=== PATIENT | male | born 1955 | race Caucasian/White ===

== ENCOUNTER 2016-11-16 21:06 | Emergency (ER) | payer OTHER ==
[~2016-11-16] VITALS: Ht 182.9 cm; Wt 90.0 kg
--- NOTE | 2016-11-16 21:22 | PD ---
HPI Chief Complaint: Psychiatric Symptoms Time Seen by Provider: 21:09 Travel History International Travel<30 days: No Contact w/Intl Traveler<30days: No Traveled to known affect area: No History of Present Illness HPI 61-year-old male was Tomlinson acted and brought in for psychiatric evaluation. Patient is homeless and has been living in [place] at a hotel. Local law enforcement has been trying to help him with housing and patient started threatening suicidal today. Patient denies any headache. Patient denies any chest pain or shortness of breath. Patient denies abdominal pain. Patient denies any nausea vomiting diarrhea. Patient has history hypertension, diabetes , status post CVA with weakness that dependent on wheelchair and walker for ambulation. [facility] Social History Tobacco Use: No Allergies-Medications (Allergen,Severity, Reaction): Coded Allergies: No Known Allergies (Unverified , 11/16/16) Reported Meds & Prescriptions Reported Meds & Active Scripts Active Reported Combivent Respimat Inh (Ipratropium-Albuterol Inh) 20-100 Chcf/Act Aero 1 Puff INH QID Losartan (Losartan Potassium) 50 Mg Tab 50 Mg PO DAILY Pravachol (Pravastatin) 40 Mg Tab 40 Mg PO DAILY Metoprolol Tartrate 50 Mg Tab 50 Mg PO DAILY Metformin (Metformin HCl) 500 Mg Tab 500 Mg PO BIDPC With meals Hydrochlorothiazide 25 Mg Tab 25 Mg PO DAILY Glipizide 10 Mg Tab 10 Mg PO DAILY Take 30 minutes before a meal Benzonatate 100 Mg Cap 100 Mg PO TID PRN Atorvastatin (Atorvastatin Calcium) 80 Mg Tab 80 Mg PO HS Non-Aspirin (Acetaminophen) 325 Mg Tab 325 Mg PO Q4-6H Aspirin 81 Mg Chew 81 Mg CHEW DAILY Review of Systems General / Constitutional: No: Fever Eyes: No: Visual changes HENT: No: Headaches Cardiovascular: No: Chest Pain or Discomfort Respiratory: No: Shortness of Breath Gastrointestinal: No: Abdominal Pain Genitourinary: No: Dysuria Musculoskeletal: No: Pain Skin: No Rash Neurologic: No: Weakness Psychiatric: No: Depression Endocrine: No: Polydipsia Hematologic/Lymphatic: No: Easy Bruising Physical Exam Narrative GENERAL: Well-nourished, well-developed patient. SKIN: Focused skin assessment warm/dry. HEAD: Normocephalic. EYES: No scleral icterus. No injection or drainage. NECK: Supple, trachea midline. No JVD or lymphadenopathy. CARDIOVASCULAR: Regular rate and rhythm without murmurs, gallops, or rubs. RESPIRATORY: Breath sounds equal bilaterally. No accessory muscle use. GASTROINTESTINAL: Abdomen soft, non-tender, nondistended. MUSCULOSKELETAL: No cyanosis, or edema. BACK: Nontender without obvious deformity. No CVA tenderness. Data Data Last Documented VS Vital Signs Date Time Temp Pulse Resp B/P Pulse Ox O2 Delivery O2 Flow Rate FiO2 11/16/16 22:01 98.7 95 16 124/68 100 Room Air Orders Complete Blood Count With Diff (11/16/16 21:16) Comprehensive Metabolic Panel (11/16/16 21:16) Urinalysis - C+S If Indicated (11/16/16 21:16) Psych Screen (11/16/16 21:16) Drug Screen, Random Urine (11/16/16 21:16) Alcohol (Ethanol) (11/16/16 21:16) Labs Laboratory Tests Test 11/16/16 21:50 White Blood Count 11.4 TH/MM3 Red Blood Count 5.44 MIL/MM3 Hemoglobin 14.8 GM/DL Hematocrit 46.0 % Mean Corpuscular Volume 84.6 FL Mean Corpuscular Hemoglobin 27.2 PG Mean Corpuscular Hemoglobin 32.2 % Concent Red Cell Distribution Width 13.2 % Platelet Count 155 TH/MM3 Mean Platelet Volume 10.6 FL Neutrophils (%) (Auto) 65.5 % Lymphocytes (%) (Auto) 23.8 % Monocytes (%) (Auto) 7.9 % Eosinophils (%) (Auto) 2.1 % Basophils (%) (Auto) 0.7 % Neutrophils # (Auto) 7.4 TH/MM3 Lymphocytes # (Auto) 2.7 TH/MM3 Monocytes # (Auto) 0.9 TH/MM3 Eosinophils # (Auto) 0.2 TH/MM3 Basophils # (Auto) 0.1 TH/MM3 CBC Comment DIFF FINAL Differential Comment Urine Color YELLOW Urine Turbidity CLEAR Urine pH 5.5 Urine Specific [place] 1.030 Urine Protein TRACE mg/dL Urine Glucose (UA) 1000 mg/dL Urine Ketones NEG mg/dL Urine Occult Blood NEG Urine Nitrite NEG Urine Bilirubin NEG Urine Urobilinogen LESS THAN 2.0 MG/DL Urine Leukocyte Esterase NEG Urine RBC LESS THAN 1 /hpf Urine WBC 1 /hpf Urine Squamous Epithelial <1 /hpf Cells Urine Mucus FEW /lpf Microscopic Urinalysis Comment CULT NOT INDICATED Sodium Level 139 MEQ/L Potassium Level 3.5 MEQ/L Chloride Level 101 MEQ/L Carbon Dioxide Level 30.6 MEQ/L Anion Gap 7 MEQ/L Blood Urea Nitrogen 14 MG/DL Creatinine 0.89 MG/DL Estimat Glomerular Filtration 87 ML/MIN Rate Random Glucose 188 MG/DL Calcium Level 8.7 MG/DL Total Bilirubin 0.7 MG/DL Aspartate Amino Transf 7 U/L (AST/SGOT) Alanine Aminotransferase 13 U/L (ALT/SGPT) Alkaline Phosphatase 58 U/L Total Protein 6.9 GM/DL Albumin 3.6 GM/DL Urine Opiates Screen NEG Urine Barbiturates Screen NEG Urine Amphetamines Screen NEG Urine Benzodiazepines Screen NEG Urine Cocaine Screen NEG Urine Cannabinoids Screen NEG Ethyl Alcohol Level 4 MG/DL [facility] Medical Decision Making Medical Screen Exam Complete: Yes Emergency Medical Condition: Yes Interpretation(s) 23:48 PM. CBC within normal limit. CMP within normal limit. Urine drug screen negative. Alcohol 4. UA is negative. Differential Diagnosis Differential diagnosis including adjustment disorder, depression, suicide, electrolyte imbalance. Narrative Course 61-year-old male was Tomlinson acted for suicidal threat. 23:49 PM. Patient is medically cleared for psychiatric evaluation and disposition. Hossein Cox MD Nov 16, 2016 21:21 medically cleared for psychiatric evaluation and disposition. Hossien Cox MD Nov 16, 2016 21:21
[2016-11-16] MEDS ORDERED: BENZ1CAP8 PO (21:58)
[2016-11-16] MEDS ORDERED: METF500T PO (21:58)
[2016-11-16] MEDS ORDERED: NON-325T2 PO (21:58)
[2016-11-16] MEDS ORDERED: PRAV40TA PO (21:58)
[2016-11-16] MEDS ORDERED: ASPI81CH CHEW (21:58)
[2016-11-16] MEDS ORDERED: HYDR25TA5 PO (21:58)
[2016-11-16] MEDS ORDERED: METO50TA PO (21:58)
[2016-11-16] MEDS ORDERED: ATOR1TAB18 PO (21:58)
[2016-11-16] MEDS ORDERED: IPRAAER INH (21:58)
[2016-11-16] MEDS ORDERED: GLIP10TA6 PO (21:58)
[2016-11-16] MEDS ORDERED: LOSA50TA PO (21:58)
[2016-11-16 22:01] VITALS: BP 124/68; PULSE 95; RESP 16; TEMP 98.7; O2SAT 100
[2016-11-16 22:13] LABS: AUTOMATED NEUTROPHIL # 7.4 TH/MM3 (1.8-7.7); BASOPHIL # 0.1 TH/MM3 (0-0.2); BASOPHIL % 0.7 % (0.0-2.0); EOSINOPHIL # 0.2 TH/MM3 (0-0.4); EOSINOPHIL % 2.1 % (0.0-4.0); HEMO FLAGS DIFF FINAL; LYMPH % 23.8 % (9.0-44.0); LYMPHOCYTE # 2.7 TH/MM3 (1.0-4.8); MEAN CELL VOLUME 84.6 FL (80.0-100.0); MEAN CORPUSCULAR HEMOGLOBIN 27.2 PG (27.0-34.0); MEAN CORPUSCULAR HGB CONC 32.2 % (32.0-36.0); MONO % 7.9 % (0.0-8.0); NEUT % 65.5 % (16.0-70.0); PLATELET COUNT 155 TH/MM3 (150-450); RED BLOOD COUNT 5.44 MIL/MM3 (4.50-5.90); RED CELL DISTRIBUTION WIDTH 13.2 % (11.6-17.2); WHITE BLOOD COUNT 11.4 TH/MM3 (4.0-11.0)
[2016-11-16 22:15] LABS: BLOOD, URINE NEG (NEG); COMMENT (UR) CULT NOT INDICATED; CULTURE IF INDICATED CULT NOT INDICATED; GLUCOSE,URINE 1000 mg/dL (NEG); KETONE, URINE NEG (NEG); MUCUS URINE FEW /lpf (OCC); NITRITE,URINE NEG (NEG); PH, URINE 5.5 (5.0-8.5); SQUAMOUS EPITHELIAL CELL URINE <1 /hpf (0-5); URINE COLOR YELLOW (YELLW/STRAW)
[2016-11-16 22:22] LABS: AMPHETAMINE, URINE NEG (NEG); BARBITURATES, URINE NEG (NEG); COCAINE, URINE NEG (NEG)
[2016-11-16 22:34] LABS: ALT (GPT) 13 U/L (12-78); ANION GAP 7 MEQ/L (5-15); AST (GOT) 7 U/L (15-37); BICARBONATE 30.6 MEQ/L (21.0-32.0); BLOOD UREA NITROGEN 14 MG/DL (7-18); CHLORIDE 101 MEQ/L (98-107); GLOMERULAR FILTRATION RATE 87 ML/MIN (>89); POTASSIUM 3.5 MEQ/L (3.5-5.1); SODIUM (NA) 139 MEQ/L (136-145)
[2016-11-16 22:37] LABS: ALKALINE PHOSPHATASE 58 U/L (45-117); TOTAL BILIRUBIN ADULT 0.7 MG/DL (0.2-1.0)
[2016-11-17 07:20] VITALS: BP 134/66; PULSE 69; RESP 18; O2SAT 99
--- NOTE | 2016-11-17 13:08 | PD.CONS ---
Provisional Diagnosis Admission Date [place] I. Adjustment disorder with mixed disturbances of emotion and conduct f 43.25 History of Present Illness Service Psychiatry Consult Requested By EDMD Reason for Consult Davi nuñez Primary Care Physician [facility] HPI Patient is a 61-year-old white male who comes here under Davi act his wheelchair-bound and homeless Tomlinson act by the [facility]'s office dated 11/16/16 at 0816 hours Essentially states that Deputy Degroot contact the patient. He is disabled homeless and wheelchair-bound the electric will that has no furnace charger. As was in the process of attempting to locate temporary housing for [place] he stated "I thought about just killing myself just before your got here". Patient seen in his room with nurse Elinor present throughout session. He is alert oriented stockily built white male with trimmed light brown piper. He stating that he was evicted from the records renting a local house. Has been homeless. Is frustrated with his perceived lack of cooperation with the [facility] and helping him find further residents. He stated when he talked to the police they somewhat encouraged him to make a suicidal statement. He does denies suicidality homicidality voices or visions denies alcohol or drug use. He says he has been seen in the past for depression though denies any inpatient psychiatric hospitalizations. This is his first contact with us at [facility]. In any event at the present time patient does not meet Davi criteria I will lift Davi nuñez as okay by psych for discharge when medically clear and stable. No Rx by me. He should continue his care through the [facility] clinic here in town Review of Systems Constitutional: DENIES: Diaphoretic episodes, Fatigue, Fever, Weight gain, Weight loss, Chills, Dizziness, Change in appetite, Night Sweats Endocrine: DENIES: Heat/cold intolerance, Polydipsia, Polyuria, Polyphagia Eyes: DENIES: Blurred vision, Diplopia, Eye inflammation, Eye pain, Vision loss , Photosensitivity, Double Vision Ears, nose, mouth, throat: DENIES: Tinnitus, Hearing loss, Vertigo, Nasal discharge, Oral lesions, Throat pain, Hoarseness, Ear Pain, Running Nose, Epistaxis, Sinus Pain, Toothache, Odynophagia Respiratory: DENIES: Apneas, Cough, Snoring, Wheezing, Hemoptysis, Sputum production, Shortness of breath Cardiovascular: DENIES: Chest pain, Palpitations, Syncope, Dyspnea on Exertion , PND, Lower Extremity Edema, Orthopnea, Claudication Gastrointestinal: DENIES: Abdominal pain, Black stools, Bloody stools, Constipation, Diarrhea, Nausea, Vomiting, Difficulty Swallowing, Anorexia Genitourinary: DENIES: Sexual dysfunction, Urinary frequency, Urinary incontinence, Urgency, Hematuria, Dysuria, Nocturia, Penile Discharge, Testicular Pain, Testicular Swelling Musculoskeletal: DENIES: Joint pain, Muscle aches, Stiffness, Joint Swelling, Back pain, Neck pain Integumentary: DENIES: Abnormal pigmentation, Nail changes, Pruritus, Rash Hematologic/lymphatic: DENIES: Bruising, Lymphadenopathy Immunologic/allergic: DENIES: Eczema, Urticaria Neurologic: COMPLAINS OF: Abnormal gait Psychiatric: COMPLAINS OF: Anxiety, Depression (mild) Past Family Social History Coded Allergies: No Known Allergies (Unverified , 11/16/16) Past Medical History History of CVA Reported Medications Ipratropium-Albuterol Inh (Combivent Respimat Inh)20-100 [facility]/Act Aero1 Puff INH QID #1 INHALER Ref 0 11/16/16 Losartan 50 Mg Tab50 Mg PO DAILY #30 TAB Ref 0 11/16/16 Pravastatin (Pravachol)40 Mg Tab40 Mg PO DAILY #30 TAB Ref 0 11/16/16 Metoprolol Tartrate 50 Mg Tab50 Mg PO DAILY #30 TAB Ref 0 11/16/16 Metformin 500 Mg [id number] Mg PO BIDPC #60 TAB Ref 0 With meals 11/16/16 Hydrochlorothiazide 25 Mg Tab25 Mg PO DAILY #30 TAB Ref 0 11/16/16 Glipizide 10 Mg Tab10 Mg PO DAILY #30 TAB Ref 0 Take 30 minutes before a meal 11/16/16 Benzonatate 100 Mg [id number] Mg PO TID PRN (COUGH) Ref 0 11/16/16 Atorvastatin 80 Mg Tab80 Mg PO HS #30 TAB Ref 0 11/16/16 Acetaminophen (Non-Aspirin)325 Mg [id number] Mg PO Q4-6H Ref 0 11/16/16 Aspirin 81 Mg Chew81 Mg CHEW DAILY Ref 0 11/16/16 Family History No contact with family Social History Patient homeless wheelchair-bound Patient's Strengths (min. 2) Patient verbal irritable access healthcare Physical Exam Patient seen screen in ED exam reviewed and agreed with Vital Signs Vital Signs Date Time Temp Pulse Resp B/P Pulse Ox O2 Delivery O2 Flow Rate FiO2 11/17/16 07:20 69 18 134/66 99 Room Air 11/16/16 22:01 98.7 Mental Status Examination Alert oriented white male calm cooperative with good eye contact Appearance Clean and neat neatly trimmed piper Speech: Unremarkable Orientation: x3 Memory: Unremarkable Thought Process: Linear Thought Content: Unremarkable, Paranoid (focusing on inability to get care he feels he needs including housing) Language Fair Fund of Knowledge Fair Hallucination Type: None Attention and Concentration: Good Suicidal Ideation: No Previous Suicide Attempts: No Homicidal Ideation: No Previous Homicide Attempts: No Insight: Fair Judgment: Poor Affect: Other (slight increase range intensity) Mood: Euthymic (to mildly dysphoric) Motor Activity: Abnormal gait-specify (post CVA) Assessment & Plan Problem List: (1) Adjustment disorder with mixed disturbance of emotions and conduct ICD Code: F43.25 Assessment & Plan Estimated LOS: days patient does not meet Tomlinson criteria will lift Tomlinson act. As okay by psych for discharge medically clear and appropriate, no Rx by me, follow-up [facility] clinic Discharge Planning To be determined Request HC Surrog/Guard Advoc?: No Lm March MD Nov 17, 2016 13:08
--- NOTE | 2016-11-17 14:33 | PD ---
Data Data Last Documented VS Vital Signs Date Time Temp Pulse Resp B/P Pulse Ox O2 Delivery O2 Flow Rate FiO2 11/17/16 07:20 69 18 134/66 99 Room Air 11/16/16 22:01 98.7 Orders Complete Blood Count With Diff (11/16/16 21:16) Comprehensive Metabolic Panel (11/16/16 21:16) Urinalysis - C+S If Indicated (11/16/16 21:16) Psych Screen (11/16/16 21:16) Drug Screen, Random Urine (11/16/16 21:16) Alcohol (Ethanol) (11/16/16 21:16) Diet Regular Basic (11/17/16 Breakfast) Labs Laboratory Tests Test 11/16/16 21:50 White Blood Count 11.4 TH/MM3 Red Blood Count 5.44 MIL/MM3 Hemoglobin 14.8 GM/DL Hematocrit 46.0 % Mean Corpuscular Volume 84.6 FL Mean Corpuscular Hemoglobin 27.2 PG Mean Corpuscular Hemoglobin 32.2 % Concent Red Cell Distribution Width 13.2 % Platelet Count 155 TH/MM3 Mean Platelet Volume 10.6 FL Neutrophils (%) (Auto) 65.5 % Lymphocytes (%) (Auto) 23.8 % Monocytes (%) (Auto) 7.9 % Eosinophils (%) (Auto) 2.1 % Basophils (%) (Auto) 0.7 % Neutrophils # (Auto) 7.4 TH/MM3 Lymphocytes # (Auto) 2.7 TH/MM3 Monocytes # (Auto) 0.9 TH/MM3 Eosinophils # (Auto) 0.2 TH/MM3 Basophils # (Auto) 0.1 TH/MM3 CBC Comment DIFF FINAL Differential Comment Urine Color YELLOW Urine Turbidity CLEAR Urine pH 5.5 Urine Specific [place] 1.030 Urine Protein TRACE mg/dL Urine Glucose (UA) 1000 mg/dL Urine Ketones NEG mg/dL Urine Occult Blood NEG Urine Nitrite NEG Urine Bilirubin NEG Urine Urobilinogen LESS THAN 2.0 MG/DL Urine Leukocyte Esterase NEG Urine RBC LESS THAN 1 /hpf Urine WBC 1 /hpf Urine Squamous Epithelial <1 /hpf Cells Urine Mucus FEW /lpf Microscopic Urinalysis Comment CULT NOT INDICATED Sodium Level 139 MEQ/L Potassium Level 3.5 MEQ/L Chloride Level 101 MEQ/L Carbon Dioxide Level 30.6 MEQ/L Anion Gap 7 MEQ/L Blood Urea Nitrogen 14 MG/DL Creatinine 0.89 MG/DL Estimat Glomerular Filtration 87 ML/MIN Rate Random Glucose 188 MG/DL Calcium Level 8.7 MG/DL Total Bilirubin 0.7 MG/DL Aspartate Amino Transf 7 U/L (AST/SGOT) Alanine Aminotransferase 13 U/L (ALT/SGPT) Alkaline Phosphatase 58 U/L Total Protein 6.9 GM/DL Albumin 3.6 GM/DL Urine Opiates Screen NEG Urine Barbiturates Screen NEG Urine Amphetamines Screen NEG Urine Benzodiazepines Screen NEG Urine Cocaine Screen NEG Urine Cannabinoids Screen NEG Ethyl Alcohol Level 4 MG/DL MDM Supervised Visit with [facility]EVA: No Narrative Course Patient was Tomlinson acted and medically clear for psychiatric evaluation. Tomlinson act lifted. Patient is homeless, wheelchair bound. Admits that the police "talk to me into" saying that he was suicidal and ordered a Tomlinson act him and bring him here. [facility] is a [facility] and they have been attempting to arrange this for several months now without help. Patient is medically cleared and there is no indication for admission. As long as he has his wheelchair, he is able to get around and this safer disposition. Case management consulted and was able to get a hold of the fire department in [place]. They have his wheelchair and will be happy to help patient physically get into his wheelchair as long as we can get him there. Patient did make a statement to ED nurse that he would "Tomlinson act myself again" if we sent him out. Patient is not feeling suicidal at this time and is forward thinking, hopeful at the [facility] will [facility]. And fortunately we do not have the means nor clinical indications to keep patient here. As long as he has his wheelchair, which we are able to arrange for him, he is safe for disposition. Patient was informed of same. Diagnosis Primary Impression: Homelessness Disposition: 01 DISCHARGE HOME Condition: Stable Lelo Serrano MD Nov 17, 2016 14:33
[2016-11-17 17:00] VITALS: BP 136/74; TEMP 98.3
== END 2016-11-17 17:00 | disposition home or self-care (01) ==
LOC: NEPD 21:06
DX: F43.25 Adjustment disorder with mixed disturbance of emotions and conduct (principal); Z59.0 Homelessness; Z99.3 Dependence on wheelchair; I69.359 Hemiplegia and hemiparesis following cerebral infarction affecting unspecified side
CPT/HCPCS: 80053; 80307; 81001; 85025; 99284